=== PATIENT | male | born 1960 | race Caucasian/White ===

== ENCOUNTER 2016-09-08 17:39 | Emergency (ER) | payer SELFPAY ==
[2016-09-08 17:46] VITALS: BP 134/74
--- NOTE | 2016-09-08 19:29 | ED ---
Laceration/Wound HPI - HPI Summary HPI Summary: 56 presents for suture removal. He had 6 sutures placed on Aug 27 s/p cutting it on a razor blade at work. He denies any fever or signs of infection. - History of Current Complaint Pain Intensity: 0 <Ashley Murray - Last Filed: 09/08/16 21:39> <Hansel Russo - Last Filed: 09/09/16 12:35> - History of Current Complaint Stated Complaint: NEEDS STITCHES REMOVED-WC Time Seen by Provider: 09/08/16 19:19 - Allergy/Home Medications Allergies/Adverse Reactions: Allergies Allergy/AdvReac Type Severity Reaction Status Date / Time No Known Allergies Allergy Verified 08/27/16 11:14 PMH/Surg Hx/FS Hx/Imm Hx Endocrine/Hematology History: Denies: Hx Anticoagulant Therapy EENT History: Denies: Hx Hearing Aid Infectious Disease History: No Infectious Disease History: Denies: Traveled Outside the [place] in Last 30 Days - Family History Known Family History: Positive: None - Social History Alcohol Use: Occasionally Substance Use Type: Reports: None Smoking Status (MU): Never Smoked Tobacco <Ashley Murray - Last Filed: 09/08/16 21:39> Review of Systems Negative: Fever Negative: Chest Pain Negative: Shortness Of Breath Positive: Other - healing laceration of left index finger All Other Systems Reviewed And Are Negative: Yes <Ashley Murray - Last Filed: 09/08/16 21:39> Physical Exam Triage Information Reviewed: Yes Vital Signs On Initial Exam: Initial Vitals Temp Pulse Resp BP Pulse Ox 97.8 F 70 16 134/74 100 09/08/16 17:44 09/08/16 17:44 09/08/16 17:44 09/08/16 17:44 09/08/16 17:44 Vital Signs Reviewed: Yes Appearance: Positive: Well-Appearing Skin: Positive: Warm, Dry, Other - healing laceration of left index finger Respiratory/Lung Sounds: Positive: Clear to Auscultation, Breath Sounds Present Cardiovascular: Positive: Normal, RRR Musculoskeletal: Positive: Strength/ROM Intact - of left index finger, Other - good pulses, capillary refill <2 secs, sensation grossly intact <Ashley Murray - Last Filed: 09/08/16 21:39> Vital Signs On Initial Exam: Initial Vitals Temp Pulse Resp BP Pulse Ox 97.8 F 70 16 134/74 100 09/08/16 17:44 09/08/16 17:44 09/08/16 17:44 09/08/16 17:44 09/08/16 17:44 <Hansel Russo - Last Filed: 09/09/16 12:35> Diagnostics - Vital Signs Vital Signs Temp Pulse Resp BP Pulse Ox 09/08/16 17:44 97.8 F 70 16 134/74 100 <Ashley Murray - Last Filed: 09/08/16 21:39> - Vital Signs Vital Signs Temp Pulse Resp BP Pulse Ox 09/08/16 17:44 97.8 F 70 16 134/74 100 <Hansel Russo - Last Filed: 09/09/16 12:35> Laceration Repair Course/Dx - Course Course Of Treatment: 56 M presents for suture removal of left index finger, laceration is healing well w/out dehiscence or evidence of infection, removed 6 sutures - Differential Dx Differental Diagnoses: Dehiscence, Healing Wound, Laceration <Ashley Murray - Last Filed: 09/08/16 21:39> - Course Assessment/Plan: I was available for consultation. This patient was seen by mid level provider. The patient was not presented, seen, or examined by me. WR. <Hansel Russo - Last Filed: 09/09/16 12:35> - Clinical Impression Provider Diagnoses: Encounter for removal of sutures Discharge <Ashley Murray - Last Filed: 09/08/16 21:39> <Hansel Russo - Last Filed: 09/09/16 12:35> - Discharge Plan Condition: Good Disposition: HOME Referrals: Vy Cazares MD [Primary Care Provider] - Additional Instructions: Perform warm soaks of area Apply sunscreen and lotion to area Return to ED if develop any signs of infection such as fever, spreading redness , or erythema or any new or worsening symptoms.
== END 2016-09-08 19:43 | disposition home or self-care (01) ==
LOC: ED 17:39
DX: Z48.02 Encounter for removal of sutures (principal)
CPT/HCPCS: 99281

== ENCOUNTER 2017-10-07 09:22 | Emergency (ER) | payer BC, OTHER ==
[2017-10-07] MEDS ORDERED: Ondansetron INJ* 2 MG/ML VIAL IV ONE (11:16)
[2017-10-07] MEDS ORDERED: NS 0.9% 1000 ML* 1,000 ML IV ONE (11:16)
--- NOTE | 2017-10-07 11:23 | ED ---
Abdominal Pain/Male - HPI Summary HPI Summary: Pt here w/ LLQ pain this morning - abrupt onset, 06/14, triggered nausea with vomiting and not sure what caused this. Has a LLQ inguinal hernia which he is aware of and able to avoid problems with over the past year. Has learned how to avoid Valsalva etc. He admits he was on the toilet around the time this started but does not feel he was straining to move his bowels. Reports he had 3 small bowel movements this morning. Hernia did pop out and was out for 4 hours (this is not normal for him - typically goes directly back in with encouragement). Admits since he's been here lying in the stretcher flat, the hernia appears to have gone back in (he has been gently encouraging him to do so. Pain is now 2 out of 10 and nausea resolved.) He further admits to LLQ abnormal discomfort starting yesterday and hernia was not an issue at that time. Denies dysuria or urinary frequency flank pain fevers chills hematochezia. Had a colonoscopy earlier this year which was positive for benign polyps otherwise normal. No known history of diverticulitis. 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 - History of Current Complaint Chief Complaint: EDAbdPain Stated Complaint: ABD PAIN Time Seen by Provider: 10/07/17 09:56 Hx Obtained From: Patient, Family/Publicity Director - Pain Intensity: 6 - Allergies/Home Medications Allergies/Adverse Reactions: Allergies Allergy/AdvReac Type Severity Reaction Status Date / Time No Known Allergies Allergy Verified 08/27/16 11:14 PMH/Surg Hx/FS Hx/Imm Hx Previously Healthy: Yes Endocrine/Hematology History: Denies: Hx Anticoagulant Therapy, Autoimmune Disease Cardiovascular History: Denies: Hx Aneurysm, Hx Hypercholesterolemia, Hx Hypertension GI History: Denies: Hx Cirrhosis, Hx Crohn's Disease, Hx Diverticulosis, Hx Gall Bladder Disease, Hx Gastroesophageal Reflux Disease, Hx Gastrointestinal Bleed, Hx Hiatal Hernia, Hx Irritable Bowel, Hx Obstructive Bowel, Hx Ulcer Sensory History: Denies: Hx Hearing Aid Infectious Disease History: No Infectious Disease History: Denies: Traveled Outside the [place] in Last 30 Days - Family History Known Family History: Positive: None - Social History 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 Negative: Diarrhea Genitourinary: Negative Musculoskeletal: Negative Skin: Negative Neurological: Negative Psychological: Normal All Other Systems Reviewed And Are Negative: Yes Physical Exam Triage Information Reviewed: Yes Vital Signs On Initial Exam: Initial Vitals Temp Pulse Resp BP Pulse Ox 97.3 F 65 15 119/73 100 10/07/17 09:32 10/07/17 09:32 10/07/17 09:32 10/07/17 09:32 10/07/17 09:32 Vital Signs Reviewed: Yes Appearance: Positive: Well-Appearing, Well-Nourished, Pain Distress - mild at rest Skin: Positive: Warm, Skin Color Reflects Adequate Perfusion, Dry - no ecchymosis over ab/flank Head/Face: Positive: Normal Head/Face Inspection Eyes: Positive: Normal, EOMI, Conjunctiva Clear - anicteric sclera ENT: Positive: Normal ENT inspection, Hearing grossly normal, Pharynx normal - oral mucosa somewhat dry (reports he did not have breakfast) Neck: Positive: Supple, Nontender Respiratory/Lung Sounds: Positive: Clear to Auscultation, Breath Sounds Present. Negative: Rales, Rhonchi, Stridor, Wheezes Cardiovascular: Positive: Normal, RRR, Pulses are Symmetrical in both Upper and Lower Extremities, S1, S2 Abdomen Description: Positive: Soft, Distended - Mild, Other: - Left lower quadrant with tenderness to palpationno rebounding; more inferiorly toward inguinal region, patient has mild area of edema that is also tender but less so than previously mentioned areano miley hernia palpated however the area is mildly more edematous compared to right lower quadrant. Negative: CVA Tenderness (R), CVA Tenderness (L), Guarding Bowel Sounds: Positive: Present Male Genital Exam: Positive: normal genitalia. Negative: hernia mass, scrotum tenderness (R), scrotum tenderness (L), testicular tenderness (R), testicular tenderness (L) Musculoskeletal: Positive: Normal, Strength/ROM Intact Neurological: Positive: Normal, Sensory/Motor Intact, Alert, Oriented to Person Place, Time, CN Intact II-III Psychiatric: Positive: Normal Diagnostics - Vital Signs Vital Signs Temp Pulse Resp BP Pulse Ox 10/07/17 09:32 97.3 F 65 15 119/73 100 - Laboratory Result Diagrams: 10/07/17 11:18 10/07/17 11:18 Lab Statement: Any lab studies that have been ordered have been reviewed, and results considered in the medical decision making process. Re-Evaluation - Re-Evaluation First Eval Change: Improved - Patient's nausea has resolved, pain is well controlled without pain medicationpatient has been simply resting in bed with IV fluids and Zofran Abdominal Pain Fem Course/Dx - Course Course Of Treatment: Patient presents with acute onset left lower quadrant pain today. It was uncertain at first if this could be diverticulitis or his inguinal hernia protruding with incarceration. Physical exam was not positive for a protruding hernia however he was tender in 2 locations so labs and CT were ordered for further evaluation. Patient's labs are positive for elevated CRP (50's) however normal white blood count and normal lactic acid level. His CT findings per report are as follows: "#1 findings suggestive of mild diverticulitis of the proximal sigmoid colon #2. thickening of the wall of a mid to distal small bowel loops suggestive of inflammatory bowel disease or enteritis. Recommend clinical correlation #3 small bowel and colon malrotation #4. left inguinal hernia containing fat and trace amount of fluid". Discussed with attending Dr. Anna who suggests surgical consult to ensure bowel that was previously entrapped has not been damaged as it was out for 4 hours per pt. Discussed case with Dr. Duran who reports patient is feeling better at this point, most likely does not have acutely damaged tissue of the bowel requiring surgery today. She is happy to see the patient at her office for follow-up care. Will treat patient for diverticulitis today ( by mouth liquids 48 hours and antibiotics ) and have him follow up with general surgery as soon as possible. Danger signs and symptoms reviewed with patient and family and he will return to the emergency department if these present. - Diagnoses Provider Diagnoses: Inguinal hernia, Diverticulitis large intestine Discharge - Discharge Plan Condition: Stable Disposition: HOME Prescriptions: Amoxicillin/Clavulanate TAB* [Augmentin TAB*] 875 mg PO TID #30 tab Patient Education Materials: Inguinal Hernia (ED), Diverticulitis (ED) Forms: *Work Release Referrals: Vy Cazares MD [Primary Care Provider] - Amalia Duran MD [Medical Doctor] - Additional Instructions: You appear to have had an incarcerated hernia for 4 hours. This went back into place after relaxation and manipulation. It is encouraged that you follow up with a surgeon as soon as possible to discuss repairing this to prevent further prolapse. Call today to schedule an appointment. You were also found to have diverticulitis. This is going to be treated with an antibiotic for 10 days and clear fluids for the next 48 hours. If you can't follow up with the surgeon in the next 2-3 days it is recommended that you follow up with your PCP for a recheck exam of your abdomen. If symptoms are improving, you may advance your diet to soft foods as directed. *If in the meantime you develop fevers, chills, worsening of abdominal pain, vomiting, lack of bowel movement, return to the emergency department
[2017-10-07 11:30] LABS: ABS Basophils 0 10^3/ul (0-0.2); ABS Eosinophils 0 10^3/ul (0-0.6); ABS Lymphocytes 0.7 10^3/ul (1.0-4.8); ABS Monocytes 0.3 10^3/ul (0-0.8); ABS Nucleated RBC 0 10^3/ul; Eosinophil % 0.1 % (0-6); Hematocrit 44 % (42-52); Hemoglobin 15.1 g/dl (14.0-18.0); Mean Corpuscular HGB Conc 34 g/dl (31-36); Mean Corpuscular Hemoglobin 30 pg (27-31); Mean Corpuscular Volume 88 fL (80-94); Mean Platelet Volume 8 um3 (7.4-10.4); Nucleated Red Blood Cells % 0; Platelet Count 210 10^3/ul (150-450); Red Blood Count 5.04 10^6/ul (4.0-5.4); Red Cell Distribution Width 12 % (10.5-15); White Blood Count 10.1 10^3/ul (3.5-10.8)
[2017-10-07 11:47] LABS: EGFR Non-African American 91.1 (>60)
[2017-10-07] MEDS ORDERED: Iohexol 300* (CONTRAST) 10 ML SDV IV ONE (13:18)
[2017-10-07 13:49] LABS: Urine Appearance Clear; Urine Blood Negative (Negative); Urine Color Yellow; Urine Ketones 1+ (Negative); Urine Protein Negative (Negative); Urine Specific Gravity 1.028 (1.010-1.030); Urine Urobilinogen Negative (Negative)
--- NOTE | 2017-10-07 13:55 | RAD ---
INDICATION: Left lower quadrant abdominal pain. COMPARISON: There are no prior studies available for comparison. TECHNIQUE: A CT scan of the abdomen and pelvis was performed with intravenous and oral contrast following intravenous injection of 95 ml of Omnipaque 300 nonionic contrast. Contiguous axial sections were obtained from the lung bases through the symphysis pubis. Images were reconstructed in the coronal and sagittal planes. FINDINGS: There is mild dependent bilateral lower lobe subsegmental atelectasis. No pleural effusion is present. The liver and spleen are within normal limits in size without significant focal abnormality. No calcified gallstones are seen. The pancreas appears to be within normal limits in size. The kidneys and adrenal glands are normal in size. No hydronephrosis is seen. No significant focal renal abnormality is seen. The aorta is normal in caliber with mild calcific plaque present. No significant enlarged retroperitoneal lymph nodes are seen. The stomach, small and large bowel appear nondistended. There is a small bowel and colon malrotation with several proximal small bowel loops located in the right lower quadrant. In addition there are several mid to distal small bowel loops located lateral to the descending colon.. The appendix is within normal limits. There is minimal wall thickening and mild stranding adjacent to the proximal sigmoid colon suggestive of diverticulitis. In addition there is circumferential wall thickening of a mid to distal loop of small bowel present in the left lower quadrant which is nondistended. There is a trace amount of free intraperitoneal fluid adjacent to this bowel loop. There is a left inguinal hernia containing fat and a trace amount of fluid. No free intraperitoneal air is seen. No significant focal osseous abnormality is seen. IMPRESSION: 1. FINDINGS SUGGESTIVE OF MILD DIVERTICULITIS OF THE PROXIMAL SIGMOID COLON. 2. THICKENING OF THE WALL OF A MID TO DISTAL SMALL BOWEL LOOP SUGGESTIVE OF INFLAMMATORY BOWEL DISEASE OR ENTERITIS. RECOMMEND CLINICAL CORRELATION. 3. SMALL BOWEL AND COLON MALROTATION. 4. LEFT INGUINAL HERNIA CONTAINING FAT AND TRACE AMOUNT OF FLUID.
--- NOTE | 2017-10-07 14:18 | ED ---
Abdominal Pain/Male - HPI Summary HPI Summary: Pt here w/ LLQ pain this morning - abrupt onset, 06/14, triggered nausea with vomiting and not sure what caused this. Has a LLQ inguinal hernia which he is aware of and able to avoid problems with over the past year. Has learned how to avoid Valsalva etc. He admits he was on the toilet around the time this started but does not feel he was straining to move his bowels. Reports he had 3 small bowel movements this morning. Hernia did pop out and was out for 4 hours (this is not normal for him - typically goes directly back in with encouragement). Admits since he's been here lying in the stretcher flat, the hernia appears to have gone back in (he has been gently encouraging him to do so. Pain is now 2 out of 10 and nausea resolved.) He further admits to LLQ abnormal discomfort starting yesterday and hernia was not an issue at that time. Denies dysuria or urinary frequency flank pain fevers chills hematochezia. Had a colonoscopy earlier this year which was positive for benign polyps otherwise normal. No known history of diverticulitis. 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 - History of Current Complaint Chief Complaint: EDAbdPain Stated Complaint: ABD PAIN Time Seen by Provider: 10/07/17 09:56 Hx Obtained From: Patient, Family/Complaint Inspector - Pain Intensity: 6 - Allergies/Home Medications Allergies/Adverse Reactions: Allergies Allergy/AdvReac Type Severity Reaction Status Date / Time No Known Allergies Allergy Verified 08/27/16 11:14 Home Medications: Home Medications NK [No Home Medications Reported] 10/07/17 [History Confirmed 10/07/17] PMH/Surg Hx/FS Hx/Imm Hx Endocrine/Hematology History: Denies: Hx Anticoagulant Therapy, Hx Diabetes, Autoimmune Disease Cardiovascular History: Denies: Hx Aneurysm, Hx Hypercholesterolemia, Hx Hypertension GI History: Denies: Hx Cirrhosis, Hx Crohn's Disease, Hx Diverticulosis, Hx Gall Bladder Disease, Hx Gastroesophageal Reflux Disease, Hx Gastrointestinal Bleed, Hx Hiatal Hernia, Hx Irritable Bowel, Hx Obstructive Bowel, Hx Ulcer History: Denies: Hx Renal Disease Sensory History: Denies: Hx Hearing Aid Infectious Disease History: No Infectious Disease History: Denies: Traveled Outside the [place] in Last 30 Days - Family History Known Family History: Positive: None - Social History 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 Lives: With Family - of 15 years Alcohol Use: Occasionally Hx Substance Use: No Substance Use Type: Reports: None Hx Tobacco Use: No Smoking Status (MU): Never Smoked Tobacco Review of Systems Constitutional: Negative Negative: Fever, Chills Physical Exam Vital Signs On Initial Exam: Initial Vitals Temp Pulse Resp BP Pulse Ox 97.3 F 65 15 119/73 100 10/07/17 09:32 10/07/17 09:32 10/07/17 09:32 10/07/17 09:32 10/07/17 09:32 Diagnostics - Vital Signs Vital Signs Temp Pulse Resp BP Pulse Ox 10/07/17 12:00 81 17 129/70 97 10/07/17 11:30 89 22 106/79 96 10/07/17 11:00 71 16 122/63 93 10/07/17 10:30 105 21 132/72 100 10/07/17 10:00 60 19 134/80 99 10/07/17 09:44 90 15 98 10/07/17 09:42 154/90 10/07/17 09:32 97.3 F 65 15 119/73 100 - Laboratory Lab Results: Lab Results 10/07/17 10/07/17 10/07/17 Range/Units 11:18 11:18 11:18 WBC 10.1 (3.5-10.8) 10^3/ul RBC 5.04 (4.0-5.4) 10^6/ul Hgb 15.1 (14.0-18.0) g/dl Hct 44 (42-52) % MCV 88 (80-94) fL MCH 30 (27-31) pg MCHC 34 (31-36) g/dl RDW 12 (10.5-15) % Plt Count 210 (150-450) 10^3/ul MPV 8 (7.4-10.4) um3 Neut % (Auto) 90.0 H (38-83) % Lymph % (Auto) 7.0 L (25-47) % [place] % (Auto) 2.5 (1-9) % Eos % (Auto) 0.1 (0-6) % Baso % (Auto) 0.4 (0-2) % Absolute Neuts (auto) 9.0 H (1.5-7.7) 10^3/ul Absolute Lymphs (auto) 0.7 L (1.0-4.8) 10^3/ul Absolute Monos (auto) 0.3 (0-0.8) 10^3/ul Absolute Eos (auto) 0 (0-0.6) 10^3/ul Absolute Basos (auto) 0 (0-0.2) 10^3/ul Absolute Nucleated RBC 0 10^3/ul Nucleated RBC % 0 Sodium 135 (133-145) mmol/L Potassium 3.7 (3.5-5.0) mmol/L Chloride 107 (101-111) mmol/L Carbon Dioxide 21 L (22-32) mmol/L Anion Gap 7 (2-11) mmol/L BUN 21 (6-24) mg/dL Creatinine 0.87 (0.67-1.17) mg/dL Est GFR ( Amer) 117.2 (>60) Est GFR (Non-Af Amer) 91.1 (>60) BUN/Creatinine Ratio 24.1 H (8-20) Glucose 139 H (70-100) mg/dL Lactic Acid 0.9 (0.5-2.0) mmol/L Calcium 9.2 (8.6-10.3) mg/dL Total Bilirubin 0.70 (0.2-1.0) mg/dL AST 15 (13-39) U/L ALT 18 (7-52) U/L Alkaline Phosphatase 55 (34-104) U/L C-Reactive Protein 57.01 H (< 5.00) mg/L Total Protein 7.3 (6.4-8.9) g/dL Albumin 4.1 (3.2-5.2) g/dL Globulin 3.2 (2-4) g/dL Albumin/Globulin Ratio 1.3 (1-3) Lipase 20 (11.0-82.0) U/L Urine Color Urine Appearance Urine pH (5-9) Ur Specific [place] (1.010-1.030) Urine Protein (Negative) Urine Ketones (Negative) Urine Blood (Negative) Urine Nitrate (Negative) Urine Bilirubin (Negative) Urine Urobilinogen (Negative) Ur Leukocyte Esterase (Negative) Urine Glucose (Negative) 10/07/17 Range/Units 13:35 WBC (3.5-10.8) 10^3/ul RBC (4.0-5.4) 10^6/ul Hgb (14.0-18.0) g/dl Hct (42-52) % MCV (80-94) fL MCH (27-31) pg MCHC (31-36) g/dl RDW (10.5-15) % Plt Count (150-450) 10^3/ul MPV (7.4-10.4) um3 Neut % (Auto) (38-83) % Lymph % (Auto) (25-47) % [place] % (Auto) (1-9) % Eos % (Auto) (0-6) % Baso % (Auto) (0-2) % Absolute Neuts (auto) (1.5-7.7) 10^3/ul Absolute Lymphs (auto) (1.0-4.8) 10^3/ul Absolute Monos (auto) (0-0.8) 10^3/ul Absolute Eos (auto) (0-0.6) 10^3/ul Absolute Basos (auto) (0-0.2) 10^3/ul Absolute Nucleated RBC 10^3/ul Nucleated RBC % Sodium (133-145) mmol/L Potassium (3.5-5.0) mmol/L Chloride (101-111) mmol/L Carbon Dioxide (22-32) mmol/L Anion Gap (2-11) mmol/L BUN (6-24) mg/dL Creatinine (0.67-1.17) mg/dL Est GFR ( Amer) (>60) Est GFR (Non-Af Amer) (>60) BUN/Creatinine Ratio (8-20) Glucose (70-100) mg/dL Lactic Acid (0.5-2.0) mmol/L Calcium (8.6-10.3) mg/dL Total Bilirubin (0.2-1.0) mg/dL AST (13-39) U/L ALT (7-52) U/L Alkaline Phosphatase (34-104) U/L C-Reactive Protein (< 5.00) mg/L Total Protein (6.4-8.9) g/dL Albumin (3.2-5.2) g/dL Globulin (2-4) g/dL Albumin/Globulin Ratio (1-3) Lipase (11.0-82.0) U/L Urine Color Yellow Urine Appearance Clear Urine pH 7.0 (5-9) Ur Specific [place] 1.028 (1.010-1.030) Urine Protein Negative (Negative) Urine Ketones 1+ H (Negative) Urine Blood Negative (Negative) Urine Nitrate Negative (Negative) Urine Bilirubin Negative (Negative) Urine Urobilinogen Negative (Negative) Ur Leukocyte Esterase Negative (Negative) Urine Glucose Negative (Negative) Result Diagrams: 10/07/17 11:18 10/07/17 11:18 Lab Statement: Any lab studies that have been ordered have been reviewed, and results considered in the medical decision making process. Discharge - Discharge Plan Referrals: Vy Cazares MD [Primary Care Provider] -
[2017-10-07] MEDS ORDERED: Amoxicillin/Clavulanate TAB* 875 MG PO ONE (14:40)
[2017-10-07 14:58] VITALS: BP 114/86
== END 2017-10-07 14:58 | disposition home or self-care (01) ==
LOC: ED 09:22
DX: K57.92 Diverticulitis of intestine, part unspecified, without perforation or abscess without bleeding (principal); K40.90 Unilateral inguinal hernia, without obstruction or gangrene, not specified as recurrent
CPT/HCPCS: 36415; 74177; 80053; 81003; 83605; 83690; 85025; 86140; 96360; 96374; 96375; 99283; A9270-GY; J2405; Q9967

== ENCOUNTER 2017-10-19 15:06 | Day surgery (SDC) | payer BC ==
[~2017-10-19 15:06] MED LIST: Buffered Lidocaine 0.9% SYRIN* 5 ML/SYR SYRINGE INTRADERM ONE; Buffered Lidocaine 0.9% SYRIN* 5 ML/SYR SYRINGE ONE; Sodium Citrate/Citric Acid* 15 ML UDC ONE; Sodium Citrate/Citric Acid* 15 ML UDC PO ONE
[2017-10-19] MEDS ORDERED: Bupivacaine 0.25% SDV* 30 ML ONE (16:35)
[2017-10-19] MEDS ORDERED: Propofol* 10 MG/ML 20 ML BTL IV PUSH ONE (16:45)
[2017-10-19] MEDS ORDERED: Lidocaine 2% PF * 5 ML VIAL ONE (16:46)
[2017-10-19] MEDS ORDERED: Rocuronium* 10 MG/ML VIAL ONE (16:52)
[2017-10-19] MEDS ORDERED: fentaNYL* 50 MCG/ML 2 ML VIAL (100 MCG VIAL) IV PRN (16:55)
[2017-10-19] MEDS ORDERED: Ondansetron INJ* 2 MG/ML VIAL IV PRN (16:55)
[2017-10-19] MEDS ORDERED: Naloxone* 0.4 MG/ML 1 ML VIAL IV PRN (16:55)
[2017-10-19] MEDS ORDERED: fentaNYL* 50 MCG/ML 2 ML VIAL (100 MCG VIAL) ONE ×2 (17:02→19:23)
[2017-10-19] MEDS ORDERED: Midazolam* 1 MG/ML 2 ML VIAL (2 MG) ONE (17:02)
[2017-10-19] MEDS ORDERED: Dexamethasone IV* 4 MG/ML 1 ML (4 MG) ONE (17:25)
[2017-10-19] MEDS ORDERED: Ketorolac INJ* 30 MG/ML 1 ML VIAL ONE (17:25)
[2017-10-19] MEDS ORDERED: Glycopyrrolate IV* 0.2 MG/ML 1 ML VIAL ONE (17:45)
[2017-10-19] MEDS ORDERED: Neostigmine Methylsulfate* 2 MG/2 ML SYRINGE ONE (17:45)
--- NOTE | 2017-10-19 18:30 | BRIEFOPN ---
Brief Operative Note - Surgery Procedures: Procedures Pre-OP Diagnoses: Right inguinal hernia Post-op Diagnosis: same Procedure: Laparoscopic right inguinal hernia repair with mesh Surgeon: Rosey Asst: Светлана Anethesia: JENNY EBL: minimal IVF: 1500cc LR Specimen: none Drains: none
[2017-10-19 19:20] VITALS: BP 117/72
--- NOTE | 2017-10-20 17:48 | OP ---
CC: Dr. 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 ANESTHESIOLOGIST: Dr. Willoughby. ANESTHESIA: General anesthesia. PRE-OP DIAGNOSIS: Left inguinal hernia. POST-OP DIAGNOSIS: Left inguinal hernia. OPERATIVE PROCEDURE: Laparoscopic left inguinal hernia repair with mesh. ESTIMATED BLOOD LOSS: Minimal blood loss. FLUIDS: 1500 cc of crystalloid fluid given. SPECIMEN: None. COUNTS: Lap pad count and instrument count correct at the end of the procedure. DESCRIPTION OF PROCEDURE: The patient was identified in the preoperative area. Marked consent was signed. He was brought to the operating room, placed on the operating room table in supine position. Preoperative antibiotics were given. Sequential devices were placed on bilateral lower extremities. General anesthesia was induced. The patient's abdomen was clipped of hair and it was prepped and draped in the standard surgical fashion. Time-out was performed. An infraumbilical incision was made. This was deepened down to the anterior fascia. We incised this on the left side. Rectus pillar was retracted laterally and entry into the preperitoneal plane was made. This dissection proved somewhat difficult, breaking down attachments at this preperitoneal plane with blunt finger dissection. We then placed a 12-mm trocar in here and then insufflated this to 12 mmHg. The patient tolerated the insufflation well. Camera was placed. Loose areolar tissue was broken down with camera dissection right to the pubic symphysis. We saw Andrés's ligament on both left and right with this dissection, but we had a very small window at this point. We placed two 5-mm along the lower midline and blunt dissection was carried out to expose a little more laterally along this left side. We could see an obvious direct hernia. This was reduced with gentle traction. This now allowed us to see the epigastric vessels, which were remained anteriorly and we entered into the space of Bogros. The peritoneum was dropped posteriorly. There was no significant indirect hernia sac, although we did skeletonize the cord structures and assured the peritoneum was in the appropriate positioning. Next, a large Bard 3DMax mesh was placed in the preperitoneal plane, allowed to unfurl and tacked in the appropriate position covering the myopectineal orifice. We tacked it laterally and also medially twice on Andrés's ligament. The preperitoneal plane was allowed to collapse. Trocars removed under vision. I thought there might be a pneumoperitoneum. We dissected down to the peritoneal cavity, did not appear to be inflated and I did not incise it. We then closed the anterior fascia with an 0 Polysorb suture using a figure-of- eight suture. We injected lidocaine and then reapproximated the 3 skin incisions with 4-0 Monocryl subcuticular sutures. Steri-Strips and sterile dressings were applied. Patient tolerated the procedure well, was transferred to PACU in stable condition. [id number]/[facility] #: [id number] [place]
== END 2017-10-19 20:03 | disposition home or self-care (01) ==
LOC: OR 15:06
PROVIDERS: ATTEND Surgery
DX: K40.90 Unilateral inguinal hernia, without obstruction or gangrene, not specified as recurrent (principal); Z87.891 Personal history of nicotine dependence; Z68.29 Body mass index [BMI] 29.0-29.9, adult
CPT/HCPCS: A9270-GY; C1776; C1781; J1100; J1885; J2250; J2704; J3010

== ENCOUNTER 2019-09-16 11:08 | Emergency (ER) | payer BC ==
[2019-09-16] MEDS ORDERED: Ondansetron INJ* 2 MG/ML VIAL IV ONE (11:23)
[2019-09-16] MEDS ORDERED: Morphine 4 MG/ML VIAL (1 ml) 4 MG/ML VIAL IV ONE (11:23)
--- NOTE | 2019-09-16 11:26 | ED ---
Abdominal Pain/Male - HPI Summary HPI Summary: Pt. is a 59 y.o male who presents to the right sided abdominal pain that started yesterday. Pt. states pain is located right mid abd. and is constant and sharp in nature. Pt. notes decreased appetite. Denies chest pain, SOB, V/D, constipation, dysuria, hematuria, testicle pain/swelling. No past hx. Surgical hx of hernia repair. Sxs are moderate in severity. No current modifying factors. - History of Current Complaint Chief Complaint: EDAbdPain Stated Complaint: LOWER ABD PAIN Time Seen by Provider: 09/16/19 11:13 Hx Obtained From: Patient Pain Intensity: 7 - Allergies/Home Medications Allergies/Adverse Reactions: Allergies Allergy/AdvReac Type Severity Reaction Status Date / Time No Known Allergies Allergy Verified 09/16/19 11:11 PMH/Surg Hx/FS Hx/Imm Hx Previously Healthy: Yes Endocrine/Hematology History: Denies: Hx Anticoagulant Therapy, Hx Diabetes Cardiovascular History: Denies: Hx Aneurysm, Hx Hypercholesterolemia, Hx Hypertension GI History: Reports: Other GI Disorders - ?DIVERTICULITIS Denies: Hx Cirrhosis, Hx Crohn's Disease, Hx Diverticulosis, Hx Gall Bladder Disease, Hx Gastroesophageal Reflux Disease, Hx Gastrointestinal Bleed, Hx Hiatal Hernia, Hx Irritable Bowel, Hx Obstructive Bowel, Hx Ulcer History: Denies: Hx Renal Disease Sensory History: Reports: Hx Contacts or Glasses - READING GLASSES Denies: Hx Hearing Aid Opthamlomology History: Reports: Hx Contacts or Glasses - READING GLASSES - Surgical History Surgery Procedure, Year, and Place: EYE SURGERY-REMOVAL OF GLASS FROM EYE-30 YEARS AGO. COLONOSCOPY -05/2017 Hx Anesthesia Reactions: No Infectious Disease History: No Infectious Disease History: Denies: Traveled Outside the [place] in Last 30 Days - Family History Known Family History: Positive: None, Non-Contributory - Social History Occupation: Employed Full-time Lives: With Family Alcohol Use: Occasionally Hx Substance Use: No Substance Use Type: Reports: None Hx Tobacco Use: No Smoking Status (MU): Former Smoker Amount Used/How Often: 1PPD -1 1/2 PPD X 20 YEARS Have You Smoked in the Last Year: No Review of Systems Constitutional: Negative Negative: Fever Cardiovascular: Negative Negative: Palpitations, Chest Pain Respiratory: Negative Negative: Shortness Of Breath, Cough Positive: Abdominal Pain, Nausea. Negative: Vomiting, Diarrhea Genitourinary: Negative Negative: dysuria, flank pain, hematuria Neurological: Negative All Other Systems Reviewed And Are Negative: Yes Physical Exam Triage Information Reviewed: Yes Vital Signs On Initial Exam: Initial Vitals Temp Pulse Resp BP Pulse Ox 97.9 F 85 19 138/90 96 09/16/19 11:09 09/16/19 11:09 09/16/19 11:09 09/16/19 11:09 09/16/19 11:09 Vital Signs Reviewed: Yes Appearance: Positive: Pain Distress - Pt. sitting on side of bed, appears uncomfortable but nontoxic. Family present. Skin: Positive: Warm, Dry Head/Face: Positive: Normal Head/Face Inspection Eyes: Positive: Normal, EOMI Neck: Positive: Supple Respiratory/Lung Sounds: Positive: Clear to Auscultation, Breath Sounds Present Cardiovascular: Positive: Normal, RRR Abdomen Description: Positive: Other: - RUQ tenderness with guarding. + harrison sign.. Negative: CVA Tenderness (R), CVA Tenderness (L) Neurological: Positive: Normal, CN Intact II-III Psychiatric: Positive: Affect/Mood Appropriate Procedures - Sedation Patient Received Moderate/Deep Sedation with Procedure: No Diagnostics - Vital Signs Vital Signs Temp Pulse Resp BP Pulse Ox 09/16/19 11:09 97.9 F 85 19 138/90 96 - Laboratory Result Diagrams: 09/16/19 11:30 09/16/19 11:30 Lab Statement: Any lab studies that have been ordered have been reviewed, and results considered in the medical decision making process. Abdominal Pain Male Course/Dx - Course Course Of Treatment: Pt. presenting with right sided abd. pain. He is afebrile with stable VS. On exam, pt. has marked RUQ pain with guardings. Will check labs and GB u/s. Labs unremarkable other than CRP of 66. U/A +RBCs without infection. GB u/s negative for acute findings per radiology. Pt. now noting pain seems to be lower. Will obtain CT abd./pelvis, suspect urolithiasis. CT abd/pelvis per radiology: IMPRESSION: #. Acute diverticulitis at the proximal transverse colon. Negative for perienteric. abscess or resulting bowel obstruction. #. 0.3 cm nonobstructing stone midpole RIGHT kidney. Negative for hydronephrosis. On re-exam pt. resting comfortably. Results discussed. We'll treat with Cipro and Flagyl. He denies pain medication prescribed. TOUCH UP PAINTER HAND reviewed and alert flags noted. Advised patient clinically liquid diet 3 days. To follow-up with family doctor in one week. We'll return to the ER for fever, vomiting or increased pain. Patient understands and agrees with plan. - Diagnoses Differential Diagnosis/HQI/PQRI: Appendicitis, Constipation, Gall Bladder Disease, Hepatitis, Ureteral Stone, Urinary Tract Infection Provider Diagnoses: Diverticulitis Discharge ED - Sign-Out/Discharge Documenting (check all that apply): Patient Departure - Discharge Plan Condition: Good Disposition: HOME Prescriptions: Ciprofloxacin TAB* [Cipro 500 MG TAB*] 500 mg PO BID #20 tab Hydrocodone/Acetaminophen [Hydrocodone-Acetamin 5-325 mg] 1 each PO Q6H #12 tablet MDD 4 metroNIDAZOLE * [Flagyl] 500 mg PO Q8H #30 tablet Patient Education Materials: Diverticulitis (ED), Diverticulitis Diet (ED) Referrals: Vy Cazares MD [Primary Care Provider] - Additional Instructions: Follow with PCP within one week for recheck Take medication as directed Increase fluids and fiber in diet Clear liquid diet x 3 days Return to ER for increased pain, fever, vomiting, or if concerned - Billing Disposition and Condition Condition: GOOD Disposition: Home
[2019-09-16 11:42] LABS: ABS Basophils 0.1 10^3/ul (0-0.2); ABS Eosinophils 0.1 10^3/ul (0-0.6); ABS Lymphocytes 1.7 10^3/ul (1.0-4.8); ABS Monocytes 0.8 10^3/ul (0-0.8); ABS Neutrophils 7.1 10^3/ul (1.5-7.7); Eosinophil % 0.8 %; Hematocrit 47 % (42-52); Hemoglobin 15.9 g/dL (14.0-18.0); Lymphocyte % 17.4 %; Mean Corpuscular HGB Conc 34 g/dL (31-36); Mean Corpuscular Hemoglobin 31 pg (27-31); Mean Corpuscular Volume 90 fL (80-94); Mean Platelet Volume 8.1 fL (7.4-10.4); Platelet Count 256 10^3/uL (150-450); Red Blood Count 5.19 10^6 /uL (4.18-5.48); Red Cell Distribution Width 12 % (10-15); White Blood Count 9.7 10^3/uL (3.5-10.8)
[2019-09-16 11:56] LABS: Urine Appearance Clear; Urine Bilirubin Negative (Negative); Urine Blood 2+ (Negative); Urine Color Yellow; Urine Glucose Negative (Negative); Urine Ketones Negative (Negative); Urine Nitrite Negative (Negative); Urine Protein Negative (Negative); Urine Specific Gravity 1.012 (1.010-1.030); Urine Urobilinogen Negative (Negative)
[2019-09-16 12:01] LABS: Urine Bacteria Absent (Absent); Urine Red Blood Cell 1+(3-5/hpf) (Absent); Urine White Blood Cell Absent (Absent)
[2019-09-16 12:06] LABS: Albumin 4.6 g/dL (3.2-5.2); Albumin/Globulin Ratio 1.5 (1-3); BUN/Creatinine Ratio 11.6 (8-20); C Reactive Protein 66.96 mg/L (<8.01); Calcium 9.6 mg/dL (8.6-10.3); EGFR African American 98.9 (>60); EGFR Non-African American 81.7 (>60); Potassium 4.3 mmol/L (3.5-5.0); Total Protein 7.6 g/dL (6.4-8.9)
[2019-09-16] MEDS ORDERED: metroNIDAZOLE TAB* 250 MG PO ONE (13:47)
[2019-09-16] MEDS ORDERED: Ciprofloxacin TAB* 500 MG PO ONE (13:47)
[2019-09-16 14:20] VITALS: BP 112/77
== END 2019-09-16 14:18 | disposition home or self-care (01) ==
LOC: ED 11:08
DX: K57.32 Diverticulitis of large intestine without perforation or abscess without bleeding (principal); N20.0 Calculus of kidney; Z87.891 Personal history of nicotine dependence
CPT/HCPCS: 36415; 74176; 76705; 80053; 81003; 81015; 83690; 85025; 86140; 96374; 96375; 99283; A9270-GY; J2270; J2405